=== PATIENT | male | born 1950 | race Caucasian/White ===

== ENCOUNTER 2019-06-12 19:14 | Inpatient (IN) | payer MEDICARE, OTHER ==
[~2019-06-12] VITALS: Ht 167.6 cm; Wt 77.7 kg
[2019-06-12] MEDS ORDERED: MORPHINE SULFATE 4 MG/ML CPJ (NOT FOR IM USE) IV STA (22:46)
[2019-06-12] MEDS ORDERED: ONDANSETRON HCL 4MG/2ML INJ IV STA (22:46)
[2019-06-12] MEDS ORDERED: SODIUM CHLORIDE 0.9% 1,000 ML IV ONE (22:46)
[2019-06-12] MEDS ORDERED: METRONIDAZOLE 500 MG PREMIX 100 ML IV ONE (23:00)
[2019-06-12] MEDS ORDERED: PIPERACILLIN/TAZ 3.375G PREMIX 50 ML IV ONE (23:00)
[2019-06-12 23:57] LABS: BASOPHILS % 0.5 % (0.0-2.0); EOSINOPHILS % 6.7 % (0.0-5.0); HEMATOCRIT. 34.2 % (42.0-52.0); HEMOGLOBIN. 11.9 g/dL (14.0-18.0); LYMPHOCYTES % 14.3 % (20.0-50.0); MEAN CORPUSCULAR HEMOGLOBIN 35.7 pg (28.0-32.0); MEAN CORPUSCULAR VOLUME 102.3 fL (80.0-94.0); MEAN PLATELET VOLUME 10.7 fl (7.4-10.4); NEUTROPHILS % 71.5 % (40.0-76.0); PLATELET 66 x1000/uL (130-400); RED BLOOD CELL COUNT 3.35 mill/uL (4.7-6.1); RED CELL DISTRIBUTION WIDTH 15.8 % (11.6-14.6)
[2019-06-13 00:05] LABS: CHLORIDE 108 mEq/L (98-107)
[2019-06-13 00:09] LABS: ETHANOL BLOOD < 10 mg/dL; INR 1.9; PROTHROMBIN TIME 18.5 sec (9.6-11.0)
[2019-06-13 08:00] VITALS: BP 116/45
[2019-06-13] MEDS ORDERED: METF-414 PO (08:55)
[2019-06-13] MEDS ORDERED: HYDR25TA MT (11:30)
[2019-06-13 12:00] VITALS: BP 122/55
[2019-06-13] MEDS: METRONIDAZOLE 500 MG PREMIX 100 ML IV SCH ×2 (13:41→21:09)
[2019-06-13] MEDS ORDERED: LIDOCAINE HCL 1% 20ML VIAL (Pyxis) INJ ONE (13:52)
[2019-06-13] MEDS ORDERED: SODIUM BICARBONATE 4% (2.4MEQ) 5ML VIAL IV ONE (13:53)
[2019-06-13] MEDS ORDERED: CLONIDINE 0.1MG TABLET PO PRN (14:45)
[2019-06-13] MEDS ORDERED: IPRATROPIUM/ALBUTEROL 0.5-3(2.5)MG/3ML NEB INH PRN (14:45)
[2019-06-13] MEDS ORDERED: HYDROCODONE/ACETAMINOPHEN 5/325MG TABLET PO PRN (14:45)
[2019-06-13] MEDS ORDERED: ACETAMINOPHEN 325MG TABLET PO PRN (14:45)
[2019-06-13] MEDS ORDERED: ONDANSETRON HCL 4MG/2ML INJ IV PRN (14:45)
[2019-06-13] MEDS ORDERED: DOCUSATE SODIUM 100MG CAPSULE PO PRN (14:45)
[2019-06-13 16:00] VITALS: BP 142/74
[2019-06-13] MEDS: CEFTRIAXONE 1 G PREMIX 50 ML IV SCH (19:10)
[2019-06-13 20:00] VITALS: BP 109/40
[2019-06-13] MEDS: LACTULOSE 20G/30ML UDC PO SCH ×2 (21:08→21:29)
[2019-06-14] VITALS (12 sets, daily range): BP systolic 93–134; BP diastolic 34–56
[2019-06-14 02:48] LABS: CLARITY URINE CLEAR (CLEAR); COLOR URINE DARK YELLOW (YELLOW); KETONES URINE TRACE (NEGATIVE); LEUKOCYTE ESTERASE URINE TRACE (NEGATIVE); NITRITE URINE POSITIVE (NEGATIVE); OCCULT BLOOD URINE NEGATIVE (NEGATIVE); PH URINE 5.5 (4.5-8.0); PROTEIN URINE NEGATIVE (NEGATIVE); SPECIFIC GRAVITY URINE 1.021 (1.005-1.030); UROBILINOGEN URINE 0.2 E.U./dL (0.2-1.0)
[2019-06-14] MEDS: LACTULOSE 20G/30ML UDC PO SCH ×2 (03:54→14:04)
[2019-06-14] MEDS: METRONIDAZOLE 500 MG PREMIX 100 ML IV SCH ×3 (05:14→21:01)
[2019-06-14 07:26] LABS: INR 1.8; PROTHROMBIN TIME 17.8 sec (9.6-11.0)
[2019-06-14 07:40] LABS: BASOPHILS % 0.9 % (0.0-2.0); EOSINOPHILS % 10.5 % (0.0-5.0); HEMATOCRIT. 30.7 % (42.0-52.0); HEMOGLOBIN. 10.9 g/dL (14.0-18.0); LYMPHOCYTES % 19.3 % (20.0-50.0); MEAN CORPUSCULAR VOLUME 101.2 fL (80.0-94.0); MEAN PLATELET VOLUME 8.6 fl (7.4-10.4); NEUTROPHILS % 62.3 % (40.0-76.0); RED BLOOD CELL COUNT 3.03 mill/uL (4.7-6.1); RED CELL DISTRIBUTION WIDTH 15.4 % (11.6-14.6)
[2019-06-14 08:32] LABS: CHLORIDE 110 mEq/L (98-107)
[2019-06-14] MEDS ORDERED: POTASSIUM CHLORIDE INJ 40 MEQ in DEXT 5% WATER 250 ML IV SCH (10:00)
[2019-06-14] MEDS ORDERED: POTASSIUM CHLORIDE 20MEQ/PACKET PO SCH (11:15)
[2019-06-14] MEDS ORDERED: PHYTONADIONE 10 MG in DEXTROSE 5% WATER 49 ML IV ONE (11:20)
[2019-06-14] MEDS: PROPRANOLOL HCL 10MG TABLET PO SCH ×2 (12:00→21:01)
[2019-06-14] MEDS: CEFTRIAXONE 1 G PREMIX 50 ML IV SCH (12:43)
[2019-06-14 13:51] LABS: VITAMIN B12 SERUM >2000 pg/mL pg/mL (211-911)
[2019-06-14] MEDS ORDERED: POTASSIUM CHLORIDE 20MEQ TABLET SR PO NR (22:30)
[2019-06-14] MEDS ORDERED: POTASSIUM CHLORIDE INJ 40 MEQ in DEXT 5% WATER 250 ML IV NR (23:00)
[2019-06-15] VITALS (9 sets, daily range): BP systolic 90–117; BP diastolic 44–56
[2019-06-15] MEDS: METRONIDAZOLE 500 MG PREMIX 100 ML IV SCH ×2 (05:41→14:04)
[2019-06-15] MEDS: PROPRANOLOL HCL 10MG TABLET PO SCH ×2 (08:54→21:00)
[2019-06-15] MEDS: LACTULOSE 20G/30ML UDC PO SCH (08:54)
[2019-06-15 11:12] LABS: PLATELET 43 x1000/uL (130-400)
[2019-06-15 11:40] LABS: EOSINOPHILS % 13.8 % (0.0-5.0); HEMATOCRIT. 35.7 % (42.0-52.0); HEMOGLOBIN. 12.5 g/dL (14.0-18.0); LYMPHOCYTES % 15.2 % (20.0-50.0); MEAN CORPUSCULAR HEMOGLOBIN 35.3 pg (28.0-32.0); MEAN CORPUSCULAR VOLUME 100.9 fL (80.0-94.0); MEAN PLATELET VOLUME 8.6 fl (7.4-10.4); MONOCYTES % 6.5 % (2.0-8.0); NEUTROPHILS % 63.5 % (40.0-76.0); PLATELET 55 x1000/uL (130-400); RED BLOOD CELL COUNT 3.54 mill/uL (4.7-6.1); RED CELL DISTRIBUTION WIDTH 15.2 % (11.6-14.6)
[2019-06-15 12:01] LABS: INR 1.8; PROTHROMBIN TIME 18.1 sec (9.6-11.0)
[2019-06-15 12:05] LABS: CHLORIDE 110 mEq/L (98-107)
[2019-06-15] MEDS: CEFTRIAXONE 1 G PREMIX 50 ML IV SCH (13:26)
[2019-06-15 15:17] LABS: HEPATITIS B SURFACE ANTIGEN NEGATIVE
[2019-06-15] MEDS ORDERED: PHYTONADIONE 10MG/ML AMP IM ONE (15:45)
[2019-06-15 15:47] LABS: HEPATITIS A AB IGM NEGATIVE (NEGATIVE)
[2019-06-15] MEDS: VANCOMYCIN HCL 1000 MG/20 ML ORAL PO SCH ×2 (18:16→23:32)
[2019-06-15] MEDS: RIFAXIMIN 550 MG TABLET PO SCH (21:20)
[2019-06-16] VITALS (16 sets, daily range): BP systolic 88–148; BP diastolic 32–93
[2019-06-16 04:15] LABS: HIV SCREEN 4G Non Reactive (Non Reactive)
[2019-06-16] MEDS: METRONIDAZOLE 500MG TABLET PO SCH ×3 (05:24→21:18)
[2019-06-16] MEDS: VANCOMYCIN HCL 1000 MG/20 ML ORAL PO SCH ×3 (05:25→17:27)
[2019-06-16] MEDS: LACTULOSE 20G/30ML UDC PO SCH (08:39)
[2019-06-16] MEDS: PROPRANOLOL HCL 10MG TABLET PO SCH ×2 (08:40→21:00)
[2019-06-16] MEDS: RIFAXIMIN 550 MG TABLET PO SCH ×2 (08:41→21:18)
[2019-06-16] MEDS: CEFTRIAXONE 1 G PREMIX 50 ML IV SCH (12:35)
[2019-06-16 13:27] LABS: INR 1.5; PARTIAL THROMBOPLASTIN TIME 34.8 sec (23.4-31.0)
[2019-06-16 13:29] LABS: HEMATOCRIT. 31.5 % (42.0-52.0); HEMOGLOBIN. 11.1 g/dL (14.0-18.0); MEAN CORPUSCULAR HEMOGLOBIN 35.7 pg (28.0-32.0); MEAN CORPUSCULAR VOLUME 101.2 fL (80.0-94.0); MEAN PLATELET VOLUME 8.2 fl (7.4-10.4); RED BLOOD CELL COUNT 3.12 mill/uL (4.7-6.1); RED CELL DISTRIBUTION WIDTH 15.3 % (11.6-14.6)
[2019-06-16 13:36] LABS: CHLORIDE 108 mEq/L (98-107)
[2019-06-16 13:41] LABS: PLATELET 45 x1000/uL (130-400)
[2019-06-16 14:41] LABS: PLATELET ESTIMATE MARKEDLY DECREASED
[2019-06-16] MEDS ORDERED: LACTULOSE 20G/30ML UDC PO SCH (17:00)
[2019-06-16] MEDS: PANTOPRAZOLE SODIUM 40 MG/VIAL IV SCH (21:18)
[2019-06-17] VITALS (25 sets, daily range): BP systolic 91–117; BP diastolic 36–62
[2019-06-17] MEDS: VANCOMYCIN HCL 1000 MG/20 ML ORAL PO SCH ×5 (04:02→23:15)
[2019-06-17 05:40] LABS: CHLORIDE 109 mEq/L (98-107)
[2019-06-17 05:41] LABS: INR 1.7; PARTIAL THROMBOPLASTIN TIME 36.2 sec (23.4-31.0); PROTHROMBIN TIME 16.6 sec (9.6-11.0)
[2019-06-17 05:46] LABS: HEMATOCRIT. 29.3 % (42.0-52.0); HEMOGLOBIN. 10.4 g/dL (14.0-18.0); MEAN CORPUSCULAR HEMOGLOBIN 35.9 pg (28.0-32.0); MEAN CORPUSCULAR VOLUME 100.5 fL (80.0-94.0); MEAN PLATELET VOLUME 8.1 fl (7.4-10.4); RED BLOOD CELL COUNT 2.91 mill/uL (4.7-6.1); RED CELL DISTRIBUTION WIDTH 14.7 % (11.6-14.6)
[2019-06-17] MEDS: METRONIDAZOLE 500MG TABLET PO SCH ×3 (06:33→21:31)
[2019-06-17 07:53] LABS: PLATELET 48 x1000/uL (130-400); PLATELET ESTIMATE NMD
[2019-06-17] MEDS: PANTOPRAZOLE SODIUM 40 MG/VIAL IV SCH ×2 (08:38→21:31)
[2019-06-17] MEDS: RIFAXIMIN 550 MG TABLET PO SCH ×2 (09:00→21:31)
[2019-06-17] MEDS: PROPRANOLOL HCL 10MG TABLET PO SCH ×2 (09:00→21:32)
[2019-06-17] MEDS ORDERED: SODIUM BICARBONATE 4% (2.4MEQ) 5ML VIAL IV ONE (10:47)
[2019-06-17] MEDS ORDERED: LIDOCAINE HCL 1% 20ML VIAL (Pyxis) INJ ONE (10:47)
[2019-06-17] MEDS ORDERED: FENTANYL CITRATE/PF 50MCG/ML 2ML VIAL ONE ×2 (10:47→15:36)
[2019-06-17] MEDS ORDERED: FENTANYL CITRATE/PF 50MCG/ML 2ML VIAL IV ONE (12:24)
[2019-06-17] MEDS ORDERED: DIPHENHYDRAMINE 50MG/ML VIAL ONE (15:36)
[2019-06-17] MEDS ORDERED: MIDAZOLAM HCL 2 MG/2 ML VIAL ONE (15:36)
[2019-06-17 17:46] LABS: HEMATOCRIT 29.6 % (42.0-52.0); HEMOGLOBIN 10.4 g/dL (14.0-18.0)
[2019-06-17] MEDS: CEFTRIAXONE 1 G PREMIX 50 ML IV SCH (23:15)
[2019-06-18] VITALS: BP 100/44
[2019-06-18 04:00] VITALS: BP 93/34
[2019-06-18] MEDS: VANCOMYCIN HCL 1000 MG/20 ML ORAL PO SCH ×3 (06:51→17:38)
[2019-06-18] MEDS: METRONIDAZOLE 500MG TABLET PO SCH (06:51)
[2019-06-18 08:00] VITALS: BP 94/59
[2019-06-18 08:07] LABS: BASOPHILS % 0.9 % (0.0-2.0); EOSINOPHILS % 8.7 % (0.0-5.0); HEMATOCRIT. 32.2 % (42.0-52.0); HEMOGLOBIN. 11.5 g/dL (14.0-18.0); LYMPHOCYTES % 12.7 % (20.0-50.0); MEAN CORPUSCULAR HEMOGLOBIN 35.9 pg (28.0-32.0); MEAN CORPUSCULAR VOLUME 100.5 fL (80.0-94.0); MEAN PLATELET VOLUME 8.1 fl (7.4-10.4); MONOCYTES % 8.3 % (2.0-8.0); NEUTROPHILS % 69.4 % (40.0-76.0); PLATELET 54 x1000/uL (130-400); RED BLOOD CELL COUNT 3.21 mill/uL (4.7-6.1); RED CELL DISTRIBUTION WIDTH 15.2 % (11.6-14.6)
[2019-06-18 08:10] LABS: INR 1.7; PROTHROMBIN TIME 16.9 sec (9.6-11.0)
[2019-06-18 08:27] LABS: CHLORIDE 109 mEq/L (98-107)
[2019-06-18] MEDS: PROPRANOLOL HCL 10MG TABLET PO SCH ×2 (08:53→20:25)
[2019-06-18] MEDS: LACTULOSE 20G/30ML UDC PO SCH (08:55)
[2019-06-18] MEDS: RIFAXIMIN 550 MG TABLET PO SCH ×2 (08:55→20:23)
[2019-06-18] MEDS: PHYTONADIONE 10MG/ML AMP SUBCUT SCH (10:49)
[2019-06-18 12:00] VITALS: BP 98/45
[2019-06-18 16:00] VITALS: BP 96/48
[2019-06-18 20:00] VITALS: BP 102/49
[2019-06-19] VITALS: BP_SYST 91; BP_DIAS 50; BP_DIAS 51
[2019-06-19 04:00] VITALS: BP 96/38
[2019-06-19] MEDS: VANCOMYCIN HCL 1000 MG/20 ML ORAL PO SCH ×3 (06:04→17:11)
[2019-06-19 08:00] VITALS: BP 102/50
[2019-06-19] MEDS: LACTULOSE 20G/30ML UDC PO SCH (08:23)
[2019-06-19] MEDS: RIFAXIMIN 550 MG TABLET PO SCH (08:23)
[2019-06-19] MEDS: PROPRANOLOL HCL 10MG TABLET PO SCH (08:25)
[2019-06-19] MEDS: PHYTONADIONE 10MG/ML AMP SUBCUT SCH (08:53)
[2019-06-19 12:00] VITALS: BP 93/40
[2019-06-19] MEDS ORDERED: HYDROCODONE/ACETAMINOPHEN 5/325MG TABLET PO PRN (15:00)
[2019-06-19 16:00] VITALS: BP_SYST 95; BP_DIAS 45; BP_DIAS 48
[2019-06-19 17:51] VITALS: BP 100/51
[2019-06-19] MEDS ORDERED: FUROSEMIDE 40MG TABLET PO SCH (21:00)
[2019-06-20] MEDS ORDERED: SPIRONOLACTONE 50MG TABLET PO SCH (09:00)
== END 2019-06-19 16:20 | disposition home or self-care (01) | DRG 871 ==
LOC: ER 19:14 → 5WST 06-13 02:00 → ENRESERV 06-13 05:17
PROVIDERS: ADMIT Internal Medicine; ATTEND Internal Medicine
PROC: 0W9G3ZZ Drainage of Peritoneal Cavity, Percutaneous Approach (ICD-10-PCS; principal; 2019-06-13)
PROC: 30233K1 Transfusion of Nonautologous Frozen Plasma into Peripheral Vein, Percutaneous Approach (ICD-10-PCS; 2019-06-14)
PROC: 30233R1 Transfusion of Nonautologous Platelets into Peripheral Vein, Percutaneous Approach (ICD-10-PCS; 2019-06-16)
PROC: 0W9G3ZZ Drainage of Peritoneal Cavity, Percutaneous Approach (ICD-10-PCS; 2019-06-17)
PROC: 0FB23ZX Excision of Left Lobe Liver, Percutaneous Approach, Diagnostic (ICD-10-PCS; 2019-06-17)
PROC: 06L38CZ Occlusion of Esophageal Vein with Extraluminal Device, Via Natural or Artificial Opening Endoscopic (ICD-10-PCS; 2019-06-17)
PROC: 0DB68ZX Excision of Stomach, Via Natural or Artificial Opening Endoscopic, Diagnostic (ICD-10-PCS; 2019-06-17)
DX: A41.9 Sepsis, unspecified organism (principal); E43 Unspecified severe protein-calorie malnutrition; I50.23 Acute on chronic systolic (congestive) heart failure; I81 Portal vein thrombosis; E87.2 Acidosis; I82.91 Chronic embolism and thrombosis of unspecified vein; K76.6 Portal hypertension; R18.8 Other ascites; D68.4 Acquired coagulation factor deficiency; A04.72 Enterocolitis due to Clostridium difficile, not specified as recurrent; E72.20 Disorder of urea cycle metabolism, unspecified; I85.10 Secondary esophageal varices without bleeding; D68.9 Coagulation defect, unspecified; K52.9 Noninfective gastroenteritis and colitis, unspecified; E86.0 Dehydration; E87.6 Hypokalemia; E87.8 Other disorders of electrolyte and fluid balance, not elsewhere classified; K74.60 Unspecified cirrhosis of liver; E11.9 Type 2 diabetes mellitus without complications; I11.0 Hypertensive heart disease with heart failure; I27.20 Pulmonary hypertension, unspecified; K80.20 Calculus of gallbladder without cholecystitis without obstruction; D49.0 Neoplasm of unspecified behavior of digestive system; Z90.49 Acquired absence of other specified parts of digestive tract; D69.6 Thrombocytopenia, unspecified; R16.1 Splenomegaly, not elsewhere classified; D53.9 Nutritional anemia, unspecified; D72.1 Eosinophilia; E88.09 Other disorders of plasma-protein metabolism, not elsewhere classified; R16.0 Hepatomegaly, not elsewhere classified; Z68.27 Body mass index [BMI] 27.0-27.9, adult; Z79.84 Long term (current) use of oral hypoglycemic drugs
CPT/HCPCS: 36415; 49083; 71045; 74176; 76700; 76942; 80048; 80076; 80320; 82105; 82140; 82248; 82270; 82378; 82607; 83036; 83605; 83735; 83880; 84132; 84145; 84484; 85014; 85018; 85049; 86301; 86705; 86709; 86803; 86850; 86900; 86927; 87015; 87045; 87340; 87389; 87427; 87449; 87493; 88108; 88305; 88307; 88312; 88313; 89055; 93005; 93306; 93970; 96365; 96368; 96375; 97162; 99285; C9113; J0696; J1200; J2250; J2270; J2405; J2543; J3010; J3370; J3430; J3480; J3490; J7030; J7050; J7060; P9017; P9034; G0480

== ENCOUNTER 2019-07-26 13:23 | Inpatient (IN) | payer MEDICARE, OTHER ==
[~2019-07-26] VITALS: Ht 162.6 cm; Wt 65.8 kg
[2019-07-26] MEDS ORDERED: SODIUM CHLORIDE 0.9% 1,000 ML IV ONE (13:55)
[2019-07-26 14:46] LABS: BASOPHILS % 0.7 % (0.0-2.0); EOSINOPHILS % 1.7 % (0.0-5.0); HEMATOCRIT. 34.6 % (42.0-52.0); HEMOGLOBIN. 12.2 g/dL (14.0-18.0); MEAN CORPUSCULAR HEMOGLOBIN 36.9 pg (28.0-32.0); MEAN CORPUSCULAR VOLUME 104.7 fL (80.0-94.0); MEAN PLATELET VOLUME 7.8 fl (7.4-10.4); MONOCYTES % 4.2 % (2.0-8.0); NEUTROPHILS % 78.4 % (40.0-76.0); PLATELET 116 x1000/uL (130-400); RED BLOOD CELL COUNT 3.31 mill/uL (4.7-6.1); RED CELL DISTRIBUTION WIDTH 17.2 % (11.6-14.6)
[2019-07-26 14:52] LABS: CHLORIDE 109 mEq/L (98-107)
[2019-07-26 14:53] LABS: INR 1.6; PROTHROMBIN TIME 16.2 sec (9.6-11.0)
[2019-07-26 14:55] LABS: ETHANOL BLOOD < 10 mg/dL
[2019-07-26] MEDS ORDERED: LACTULOSE 20G/30ML UDC PO ONE (15:15)
[2019-07-26] MEDS ORDERED: PIPERACILLIN/TAZ 3.375G PREMIX 50 ML IV ONE (15:15)
[2019-07-26] MEDS ORDERED: IPRATROPIUM/ALBUTEROL 0.5-3(2.5)MG/3ML NEB NEB PRN (17:15)
[2019-07-26] MEDS ORDERED: CLONIDINE 0.1MG TABLET PO PRN (17:15)
[2019-07-26] MEDS ORDERED: ACETAMINOPHEN 650MG SUPP PR PRN (17:15)
[2019-07-26] MEDS ORDERED: PHYTONADIONE 10MG/ML AMP SUBCUT NR (17:15)
[2019-07-26] MEDS ORDERED: NA PHOS,M-B/NA PHOS,DI-BA ENEMA 118ML PR PRN (17:15)
[2019-07-26] MEDS ORDERED: LORAZEPAM 0.5MG TABLET PO PRN (17:15)
[2019-07-26] MEDS ORDERED: DIPHENHYDRAMINE 50MG/ML VIAL IV PRN (17:15)
[2019-07-26] MEDS ORDERED: MIDODRINE HCL 5MG TABLET PO SCH (17:15)
[2019-07-26] MEDS ORDERED: MAGNESIUM/ALUMINUM HYDROXIDE/SIMETHICONE 30ML UDC PO PRN (17:15)
[2019-07-26] MEDS ORDERED: GUAIFENESIN 200MG/10ML SUGAR FREE UDC PO PRN (17:15)
[2019-07-26] MEDS ORDERED: DOCUSATE SODIUM 100MG CAPSULE PO PRN (17:15)
[2019-07-26] MEDS ORDERED: ONDANSETRON HCL 4MG/2ML INJ IV PRN (17:15)
[2019-07-26] MEDS ORDERED: ACETAMINOPHEN 325MG TABLET PO PRN (17:15)
[2019-07-26] MEDS ORDERED: HYDROCODONE/ACETAMINOPHEN 5/325MG TABLET PO PRN (17:15)
[2019-07-26 17:50] VITALS: BP 101/46
[2019-07-26] MEDS ORDERED: GLIM1TAB2 MT (18:01)
[2019-07-26] MEDS ORDERED: HYDR-4001 PO (18:01)
[2019-07-26] MEDS ORDERED: PROP10TA10 MT (18:01)
[2019-07-26] MEDS ORDERED: OMEP20CA5 MT (18:01)
[2019-07-26] MEDS ORDERED: FURO40TA5 MT (18:01)
[2019-07-26] MEDS ORDERED: SPIR50TA5 MT (18:01)
[2019-07-26 20:00] VITALS: BP 85/33
[2019-07-26] MEDS: INSULIN LISPRO 100 UNITS/ML SUBCUT SCH (21:00)
[2019-07-26] MEDS ORDERED: SODIUM CHLORIDE 0.9% 250 ML IV NR (21:00)
[2019-07-26] MEDS ORDERED: DEXTROSE 50% WATER 50ML SYRINGE IV PRN (21:00)
[2019-07-26] MEDS: LACTULOSE 20G/30ML UDC PO SCH (21:25)
[2019-07-26] MEDS: BLOOD SUGAR DIAGNOSTIC STRIP TEST SCH (21:25)
[2019-07-26] MEDS: PANTOPRAZOLE SODIUM 40 MG/VIAL IV SCH (21:25)
[2019-07-26] MEDS ORDERED: SODIUM CHLORIDE 0.9% 250 ML IV ONE (22:00)
[2019-07-27] VITALS (8 sets, daily range): BP systolic 58–144; BP diastolic 39–61
[2019-07-27] MEDS: PIPERACILLIN/TAZOBACTAM 3.375 G in DEXT 5% WATER 100 ML IV SCH ×4 (00:37→18:05)
[2019-07-27] MEDS: MIDODRINE HCL 5MG TABLET PO SCH ×3 (04:51→18:03)
[2019-07-27] MEDS ORDERED: PHYTONADIONE 10MG/ML AMP SUBCUT SCH (06:00)
[2019-07-27] MEDS: BLOOD SUGAR DIAGNOSTIC STRIP TEST SCH ×4 (06:11→21:00)
[2019-07-27] MEDS: INSULIN LISPRO 100 UNITS/ML SUBCUT SCH ×4 (06:12→21:00)
[2019-07-27] MEDS: LACTULOSE 20G/30ML UDC PO SCH ×3 (06:17→22:21)
[2019-07-27 07:47] LABS: INR 1.9; PARTIAL THROMBOPLASTIN TIME 40.2 sec (23.4-31.0); PROTHROMBIN TIME 18.5 sec (9.6-11.0)
[2019-07-27 07:48] LABS: BASOPHILS % 0.1 % (0.0-2.0); EOSINOPHILS % 0.1 % (0.0-5.0); HEMATOCRIT. 31.8 % (42.0-52.0); HEMOGLOBIN. 10.8 g/dL (14.0-18.0); LYMPHOCYTES % 8.8 % (20.0-50.0); MEAN CORPUSCULAR HEMOGLOBIN 36.5 pg (28.0-32.0); MEAN CORPUSCULAR VOLUME 107.8 fL (80.0-94.0); MEAN PLATELET VOLUME 8.1 fl (7.4-10.4); MONOCYTES % 4.2 % (2.0-8.0); NEUTROPHILS % 86.8 % (40.0-76.0); PLATELET 67 x1000/uL (130-400); RED BLOOD CELL COUNT 2.95 mill/uL (4.7-6.1); RED CELL DISTRIBUTION WIDTH 17.9 % (11.6-14.6)
[2019-07-27 07:58] LABS: CHLORIDE 107 mEq/L (98-107)
[2019-07-27 08:07] LABS: LDL CHOLESTEROL 65 mg/dL (5-100)
[2019-07-27 08:09] LABS: HDL CHOLESTEROL 15 mg/dL (40-59); T4 FREE 1.53 ng/dL (0.76-1.46)
[2019-07-27] MEDS: PANTOPRAZOLE SODIUM 40 MG/VIAL IV SCH ×2 (09:38→22:16)
[2019-07-27] MEDS: SPIRONOLACTONE 25MG TABLET PO SCH (09:38)
[2019-07-27] MEDS: FUROSEMIDE 40MG/4ML VIAL IVP SCH (09:39)
[2019-07-27] MEDS ORDERED: LIDOCAINE HCL 1% 20ML VIAL (Pyxis) INJ ONE ×2 (09:57→10:45)
[2019-07-27] MEDS ORDERED: SODIUM BICARBONATE 4% (2.4MEQ) 5ML VIAL IV ONE ×2 (09:57→10:45)
[2019-07-28] VITALS: BP 98/51
[2019-07-28] MEDS: PIPERACILLIN/TAZOBACTAM 2.25 G in DEXTROSE 5% WATER 50 ML IV SCH ×4 (01:00→20:55)
[2019-07-28 04:00] VITALS: BP 91/57
[2019-07-28] MEDS: LACTULOSE 20G/30ML UDC PO SCH ×2 (06:00→13:45)
[2019-07-28] MEDS: BLOOD SUGAR DIAGNOSTIC STRIP TEST SCH ×4 (06:36→20:55)
[2019-07-28 06:41] LABS: BASOPHILS % 0.2 % (0.0-2.0); CHLORIDE 108 mEq/L (98-107); HEMOGLOBIN. 9.1 g/dL (14.0-18.0); INR 2.1; LYMPHOCYTES % 11.3 % (20.0-50.0); MEAN CORPUSCULAR HEMOGLOBIN 36.9 pg (28.0-32.0); MEAN CORPUSCULAR VOLUME 105.2 fL (80.0-94.0); MEAN PLATELET VOLUME 8.4 fl (7.4-10.4); MONOCYTES % 9.4 % (2.0-8.0); NEUTROPHILS % 78.1 % (40.0-76.0); PROTHROMBIN TIME 20.7 sec (9.6-11.0); RED BLOOD CELL COUNT 2.47 mill/uL (4.7-6.1)
[2019-07-28 06:48] LABS: PLATELET 43 x1000/uL (130-400)
[2019-07-28] MEDS: INSULIN LISPRO 100 UNITS/ML SUBCUT SCH ×4 (08:10→21:02)
[2019-07-28] MEDS: FUROSEMIDE 40MG/4ML VIAL IVP SCH (09:24)
[2019-07-28 09:30] VITALS: BP 112/42
[2019-07-28] MEDS: PANTOPRAZOLE SODIUM 40 MG/VIAL IV SCH ×2 (09:32→20:54)
[2019-07-28] MEDS: SPIRONOLACTONE 25MG TABLET PO SCH (09:36)
[2019-07-28] MEDS: LEVOTHYROXINE SODIUM 25MCG TABLET PO SCH (09:37)
[2019-07-28] MEDS: MIDODRINE HCL 5MG TABLET PO SCH ×3 (09:37→19:38)
[2019-07-28 12:00] VITALS: BP 93/44
[2019-07-28 16:00] VITALS: BP 100/55
[2019-07-28 20:00] VITALS: BP 100/50
[2019-07-29] VITALS (7 sets, daily range): BP systolic 95–113; BP diastolic 37–53
[2019-07-29] MEDS: PIPERACILLIN/TAZOBACTAM 2.25 G in DEXTROSE 5% WATER 50 ML IV SCH ×4 (02:03→19:17)
[2019-07-29] MEDS: BLOOD SUGAR DIAGNOSTIC STRIP TEST SCH ×4 (06:11→20:48)
[2019-07-29] MEDS: INSULIN LISPRO 100 UNITS/ML SUBCUT SCH ×4 (08:10→20:48)
[2019-07-29] MEDS: LEVOTHYROXINE SODIUM 25MCG TABLET PO SCH (08:59)
[2019-07-29] MEDS: SPIRONOLACTONE 25MG TABLET PO SCH (10:08)
[2019-07-29] MEDS: FUROSEMIDE 40MG/4ML VIAL IVP SCH (10:08)
[2019-07-29] MEDS: MIDODRINE HCL 5MG TABLET PO SCH ×3 (10:08→19:17)
[2019-07-29] MEDS: LACTULOSE 20G/30ML UDC PO SCH (10:13)
[2019-07-29] MEDS: PANTOPRAZOLE SODIUM 40 MG/VIAL IV SCH ×2 (10:13→20:48)
[2019-07-29 16:42] LABS: BASOPHILS % 0.3 % (0.0-2.0); HEMATOCRIT. 22.7 % (42.0-52.0); MEAN CORPUSCULAR HEMOGLOBIN 37.2 pg (28.0-32.0); MEAN CORPUSCULAR VOLUME 105.5 fL (80.0-94.0); MEAN PLATELET VOLUME 8.4 fl (7.4-10.4); MONOCYTES % 10.4 % (2.0-8.0); NEUTROPHILS % 72.3 % (40.0-76.0); RED BLOOD CELL COUNT 2.15 mill/uL (4.7-6.1); RED CELL DISTRIBUTION WIDTH 17.2 % (11.6-14.6)
[2019-07-29 16:48] LABS: CHLORIDE 103 mEq/L (98-107)
[2019-07-29 16:50] LABS: INR 1.6; PROTHROMBIN TIME 16.3 sec (9.6-11.0)
[2019-07-29 16:51] LABS: PLATELET 40 x1000/uL (130-400)
[2019-07-30] VITALS: BP 104/55
[2019-07-30] MEDS: PIPERACILLIN/TAZOBACTAM 2.25 G in DEXTROSE 5% WATER 50 ML IV SCH ×4 (01:28→18:38)
[2019-07-30 04:00] VITALS: BP 90/47
[2019-07-30] MEDS: INSULIN LISPRO 100 UNITS/ML SUBCUT SCH ×4 (06:39→21:47)
[2019-07-30] MEDS: BLOOD SUGAR DIAGNOSTIC STRIP TEST SCH ×4 (06:39→21:22)
[2019-07-30 07:16] LABS: INR 1.6; PROTHROMBIN TIME 15.9 sec (9.6-11.0)
[2019-07-30 07:17] LABS: BASOPHILS % 0.5 % (0.0-2.0); EOSINOPHILS % 2.5 % (0.0-5.0); HEMATOCRIT. 24.6 % (42.0-52.0); HEMOGLOBIN. 8.6 g/dL (14.0-18.0); LYMPHOCYTES % 21.4 % (20.0-50.0); MEAN CORPUSCULAR HEMOGLOBIN 36.6 pg (28.0-32.0); MEAN CORPUSCULAR VOLUME 104.4 fL (80.0-94.0); MEAN PLATELET VOLUME 8.4 fl (7.4-10.4); MONOCYTES % 13.3 % (2.0-8.0); NEUTROPHILS % 62.3 % (40.0-76.0); RED BLOOD CELL COUNT 2.36 mill/uL (4.7-6.1); RED CELL DISTRIBUTION WIDTH 16.6 % (11.6-14.6)
[2019-07-30] MEDS ORDERED: LIDOCAINE HCL 1% 20ML VIAL (Pyxis) INJ ONE (07:19)
[2019-07-30 07:25] LABS: CHLORIDE 105 mEq/L (98-107)
[2019-07-30 08:00] VITALS: BP 101/53
[2019-07-30 08:04] LABS: PLATELET 44 x1000/uL (130-400)
[2019-07-30] MEDS: LACTULOSE 20G/30ML UDC PO SCH (08:48)
[2019-07-30] MEDS: SPIRONOLACTONE 25MG TABLET PO SCH ×2 (08:48→08:51)
[2019-07-30] MEDS: MIDODRINE HCL 5MG TABLET PO SCH ×3 (08:48→18:12)
[2019-07-30] MEDS: LEVOTHYROXINE SODIUM 25MCG TABLET PO SCH (08:48)
[2019-07-30] MEDS ORDERED: POTASSIUM CHLORIDE 20MEQ TABLET SR PO NR (09:30)
[2019-07-30] MEDS: PANTOPRAZOLE SODIUM 40 MG/VIAL IV SCH ×2 (11:59→21:21)
[2019-07-30] MEDS: FUROSEMIDE 40MG/4ML VIAL IVP SCH (11:59)
[2019-07-30 12:00] VITALS: BP 92/48
[2019-07-30 16:00] VITALS: BP 95/47
[2019-07-31 00:21] VITALS: BP 104/52
[2019-07-31] MEDS: PIPERACILLIN/TAZOBACTAM 2.25 G in DEXTROSE 5% WATER 50 ML IV SCH ×4 (00:58→17:54)
[2019-07-31 04:00] VITALS: BP 104/44
[2019-07-31 05:58] LABS: BASOPHILS % 0.6 % (0.0-2.0); HEMATOCRIT. 24.4 % (42.0-52.0); HEMOGLOBIN. 8.7 g/dL (14.0-18.0); LYMPHOCYTES % 22.8 % (20.0-50.0); MEAN CORPUSCULAR HEMOGLOBIN 36.8 pg (28.0-32.0); MEAN CORPUSCULAR VOLUME 103.7 fL (80.0-94.0); MEAN PLATELET VOLUME 8.2 fl (7.4-10.4); MONOCYTES % 14.6 % (2.0-8.0); RED BLOOD CELL COUNT 2.36 mill/uL (4.7-6.1); RED CELL DISTRIBUTION WIDTH 17.2 % (11.6-14.6)
[2019-07-31 06:21] LABS: CHLORIDE 105 mEq/L (98-107)
[2019-07-31 06:35] LABS: PLATELET 40 x1000/uL (130-400)
[2019-07-31] MEDS: BLOOD SUGAR DIAGNOSTIC STRIP TEST SCH ×4 (07:40→20:46)
[2019-07-31 08:00] VITALS: BP 93/49
[2019-07-31] MEDS: INSULIN LISPRO 100 UNITS/ML SUBCUT SCH ×5 (08:10→20:53)
[2019-07-31] MEDS: LACTULOSE 20G/30ML UDC PO SCH (08:49)
[2019-07-31] MEDS: PANTOPRAZOLE SODIUM 40 MG/VIAL IV SCH ×2 (08:49→21:13)
[2019-07-31] MEDS: FUROSEMIDE 40MG/4ML VIAL IVP SCH (08:49)
[2019-07-31] MEDS: MIDODRINE HCL 5MG TABLET PO SCH ×3 (08:50→17:12)
[2019-07-31] MEDS: LEVOTHYROXINE SODIUM 25MCG TABLET PO SCH (08:50)
[2019-07-31] MEDS: SPIRONOLACTONE 25MG TABLET PO SCH (08:50)
[2019-07-31 12:00] VITALS: BP 105/59
[2019-07-31 13:56] LABS: PLATELET ESTIMATE MARKEDLY DECREASED
[2019-07-31] MEDS ORDERED: POTASSIUM CHLORIDE 20MEQ TABLET SR PO SCH (15:15)
[2019-07-31 16:00] VITALS: BP 104/45
[2019-08-01] VITALS: BP 108/49
[2019-08-01] MEDS: PIPERACILLIN/TAZOBACTAM 2.25 G in DEXTROSE 5% WATER 50 ML IV SCH ×3 (00:43→14:22)
[2019-08-01 04:00] VITALS: BP 102/48
[2019-08-01 05:55] LABS: BASOPHILS % 0.5 % (0.0-2.0); HEMATOCRIT. 27.4 % (42.0-52.0); HEMOGLOBIN. 9.6 g/dL (14.0-18.0); LYMPHOCYTES % 20.8 % (20.0-50.0); MEAN CORPUSCULAR HEMOGLOBIN 36.6 pg (28.0-32.0); MEAN CORPUSCULAR VOLUME 104.3 fL (80.0-94.0); MEAN PLATELET VOLUME 8.2 fl (7.4-10.4); MONOCYTES % 12.2 % (2.0-8.0); NEUTROPHILS % 63.5 % (40.0-76.0); RED BLOOD CELL COUNT 2.63 mill/uL (4.7-6.1); RED CELL DISTRIBUTION WIDTH 16.6 % (11.6-14.6)
[2019-08-01 06:20] LABS: CHLORIDE 103 mEq/L (98-107)
[2019-08-01] MEDS: BLOOD SUGAR DIAGNOSTIC STRIP TEST SCH ×2 (07:40→13:33)
[2019-08-01 07:42] LABS: PLATELET 47 x1000/uL (130-400)
[2019-08-01 08:00] VITALS: BP 120/49
[2019-08-01] MEDS: INSULIN LISPRO 100 UNITS/ML SUBCUT SCH ×2 (08:10→13:10)
[2019-08-01] MEDS: SPIRONOLACTONE 25MG TABLET PO SCH (09:56)
[2019-08-01] MEDS: LACTULOSE 20G/30ML UDC PO SCH (09:56)
[2019-08-01] MEDS: LEVOTHYROXINE SODIUM 25MCG TABLET PO SCH (09:56)
[2019-08-01] MEDS: FUROSEMIDE 40MG/4ML VIAL IVP SCH (09:56)
[2019-08-01] MEDS: PANTOPRAZOLE SODIUM 40 MG/VIAL IV SCH (09:57)
[2019-08-01] MEDS: MIDODRINE HCL 5MG TABLET PO SCH ×2 (09:57→14:21)
[2019-08-01 12:00] VITALS: BP 117/41
[2019-08-01] MEDS ORDERED: POTASSIUM CHLORIDE 20MEQ TABLET SR PO SCH (12:30)
[2019-08-01 13:00] LABS: BG BASE EXCESS -4.9 mmol/L (-2.0-2.0); BG CARBOXYHEMOGLOBIN 0.8 % (0.5-1.5); BG DEOXYHEMOGLOBIN 5.2 % (0.0-5.0); BG FRACTION INSPIRED OXYGEN 21; BG HCO3 ACT 18.7 mmol/L (22.0-26.0); BG OXYGEN SATURATION 94.8 % (92.0-98.5); BG PCO2 29.7 mmHg (35.0-45.0); BG PH 7.418 (7.350-7.450); BG SAMPLE SITE LEFT BRACHIAL; BG TOTAL HEMOGLOBIN 9.2 g/dL (12.0-18.0); BG VENT MODE ROOM AIR
[2019-08-01 15:35] VITALS: BP 117/41
== END 2019-08-01 16:37 | disposition home health service (06) | DRG 871 ==
LOC: ER 13:23 → 7WST 15:23 → EDBEDREQ 15:24 → ENRESERV 16:07 → 7WST 18:07
PROVIDERS: ADMIT Internal Medicine; ATTEND Internal Medicine
PROC: 0W9G3ZZ Drainage of Peritoneal Cavity, Percutaneous Approach (ICD-10-PCS; principal; 2019-07-27)
PROC: 02HV33Z Insertion of Infusion Device into Superior Vena Cava, Percutaneous Approach (ICD-10-PCS; 2019-07-30)
PROC: B548ZZA Ultrasonography of Superior Vena Cava, Guidance (ICD-10-PCS; 2019-07-30)
PROC: B548ZZA Ultrasonography of Superior Vena Cava, Guidance (ICD-10-PCS; 2019-08-01)
PROC: 02HV33Z Insertion of Infusion Device into Superior Vena Cava, Percutaneous Approach (ICD-10-PCS; 2019-08-01)
PROC: B5181ZA Fluoroscopy of Superior Vena Cava using Low Osmolar Contrast, Guidance (ICD-10-PCS; 2019-08-01)
DX: A41.9 Sepsis, unspecified organism (principal); D65 Disseminated intravascular coagulation [defibrination syndrome]; K76.7 Hepatorenal syndrome; C22.0 Liver cell carcinoma; E87.2 Acidosis; K76.6 Portal hypertension; R18.8 Other ascites; N17.9 Acute kidney failure, unspecified; E46 Unspecified protein-calorie malnutrition; D68.4 Acquired coagulation factor deficiency; K72.90 Hepatic failure, unspecified without coma; K74.60 Unspecified cirrhosis of liver; D50.9 Iron deficiency anemia, unspecified; E86.0 Dehydration; I10 Essential (primary) hypertension; E87.6 Hypokalemia; R16.1 Splenomegaly, not elsewhere classified; K52.9 Noninfective gastroenteritis and colitis, unspecified; D53.9 Nutritional anemia, unspecified; G89.3 Neoplasm related pain (acute) (chronic); Z79.899 Other long term (current) drug therapy
CPT/HCPCS: 36415; 36573; 36600; 49083; 71045; 74176; 76700; 76937; 80061; 80320; 82040; 82140; 82270; 82375; 82805; 82962; 83605; 83880; 84145; 84439; 84443; 84484; 86850; 86900; 93005; 93970; 97162; 99291; C1725; C1769; C1893; C9113; J1200; J1815; J1940; J2543; J3430; J3490; J7030; J7040; J7060; A4315; G0480